=== PATIENT | male | born 1950 | race Caucasian/White ===

== ENCOUNTER 2016-10-07 12:30 | Outpatient (CLI) | payer MEDICARE ==
[~2016-10-07] VITALS: Ht 170.2 cm; Wt 86.2 kg
[~2016-10-07 12:30] MED LIST: ASPI-999 PO; ATOR10TA PO; ATOR40TA PO; TRAM-42 PO
== END 2016-10-07 12:43 ==
LOC: PREOP 12:30
PROVIDERS: ATTEND Surgery
DX: Z01.818 Encounter for other preprocedural examination (principal); Z12.11 Encounter for screening for malignant neoplasm of colon

== ENCOUNTER 2016-10-10 09:15 | Day surgery (SDC) | payer MEDICARE ==
[~2016-10-10] VITALS: Ht 170.2 cm; Wt 86.2 kg
[2016-10-10] MEDS ORDERED: NALOXONE 0.4 MG/ML 1 ML (NARCAN) VIAL IVP PRN (09:30)
[2016-10-10] MEDS ORDERED: NS IV 500 ML 500 ML IV ONE (09:30)
[2016-10-10] MEDS ORDERED: FLUMAZENIL (ROMAZICON) 0.1 MG/ML 5 ML VIAL INJ PRN (09:30)
--- NOTE | 2016-10-10 09:33 | Conscious Sedation/ASA ---
Conscious Sedation Pre-Proced ASA Class: 2 Airway Mallampati Classification: (venetie appropriate class) I. II. III, IV Lungs Heart ASA score ASA 1: a normal healthy patient ASA 2: a patient with a mild systemic disease (mid diabetes, controlled hypertension, obesity ASA 3: a patient with a severe systemic disease that limits activity (angina , COPD, prior Myocardial infarction) ASA 4: a patient with an incapacitating disease that is a constant threat to life (CHF, renal failure) ASA 5: a moribund patient not expected to survive 24 hrs. (ruptured aneurysm) ASA 6: a declared brain patient whose organs are being harvested. For emergent operations, add the letter E after the classification Grade 2 Sedation Plan: Discussed options with patient/fam Note The patient is an appropriate candidate to undergo the planned procedure, sedation, and anesthesia. The patient immediately re-assessed prior to indication. NINA ARENAS MD Oct 10, 2016 9:33 am
[2016-10-10 09:45] VITALS: BP 124/81
[2016-10-10] MEDS ORDERED: METF500T4 PO (09:47)
[2016-10-10] MEDS ORDERED: fentaNYL INJECTION 100 MCG/2 ML AMP ONE ×2 (10:05)
[2016-10-10] MEDS ORDERED: MIDAZOLAM 2 MG/2 ML (VERSED) VIAL ONE ×3 (10:05)
[2016-10-10] MEDS: fentaNYL INJECTION 100 MCG/2 ML AMP IVP PRN ×2 (10:15→10:24)
[2016-10-10] MEDS: MIDAZOLAM 2 MG/2 ML (VERSED) VIAL IVP PRN ×2 (10:18→10:26)
--- NOTE | 2016-10-10 10:47 | Endoscopy Procedure Report ---
Endoscopy Report Date: Oct 10, 2016 Preoperative Diagnosis: screening. Personal history of polyps Study Performed: Colonoscopy Procedure Instrument: Colonoscope Endo Procedure/Findings Findings 1.: Polyp, Diverticulosis Copy Copies To 1: JAKE ARMIJO XAVIER M MD Oct 10, 2016 10:47 am
--- NOTE | 2016-10-10 10:48 | Discharge Inst-Simple/Standard ---
Discharge Inst-Standard Discharge Medications New, Converted or Re-Newed RX: Other Patient Instructions/Follow Up Plan of Care/Instructions/FU: repeat colonoscopy in 2 years Activity as Tolerated: Yes Discharge Diet: ADA Diet NINA ARENAS MD Oct 10, 2016 10:48 am
[2016-10-10 10:50] VITALS: BP 94/51
[2016-10-10 11:20] VITALS: BP 112/72
[2016-10-10 11:30] VITALS: BP 112/72
--- NOTE | 2016-10-10 12:40 | PROCEDURE REPORT ---
PROCEDURE PHYSICIAN: NINA ARENAS DATE OF PROCEDURE: 10/10/2016 PROCEDURE: 1. Screening colonoscopy. 2. Snare polypectomy. SURGEON: Dr. Arenas. INDICATION FOR THE PROCEDURE: This gentleman, with a previous history of polyps, came in for screening colonoscopy. Informed consent was obtained after reviewing the procedure in detail. DESCRIPTION OF THE PROCEDURE: He was placed in left lateral decubitus position and his vital signs were monitored. Conscious sedation was achieved using Versed and fentanyl. Digital rectal examination was unremarkable. The colonoscope was then introduced into the rectum and advanced all the way up to the cecum. The scope was then withdrawn slowly and the mucosa examined in a systematic fashion. FINDINGS: 1. Sigmoid diverticulosis. 2. A 4 mm sessile polyp of the proximal ascending colon, very close to the cecum. It was snared and retrieved. He tolerated the procedure well and was taken back to the nursing area in a stable condition. IMPRESSION: 1. Personal history of polyps. 2. Right colon polyp excised. 3. Recommend repeating in 2 years. Job ID: [id number] Dictated Date: 10/10/2016 10:46:00 Instrumental Musician Date: 10/10/2016 12:36:10 / meagan MARLEY
== END 2016-10-10 11:30 | disposition home or self-care (01) ==
LOC: ENDO 09:15
PROVIDERS: ATTEND Surgery
DX: Z12.11 Encounter for screening for malignant neoplasm of colon (principal); K63.5 Polyp of colon; K57.90 Diverticulosis of intestine, part unspecified, without perforation or abscess without bleeding
CPT/HCPCS: 88305

== ENCOUNTER 2017-11-07 05:36 | Outpatient (CLI) | payer MEDICARE ==
[~2017-11-07] VITALS: Ht 170.2 cm; Wt 86.2 kg
[~2017-11-07 05:36] MED LIST changes: +METF500T5 PO
[2017-11-07] MEDS ORDERED: CART1TAB5 PO (08:52)
[2017-11-08] MEDS ORDERED: ACHD5005 PO (14:51)
== END 2017-11-07 10:00 ==
LOC: PREOP 05:36
PROVIDERS: ATTEND Surgery
DX: Z01.818 Encounter for other preprocedural examination (principal); L98.9 Disorder of the skin and subcutaneous tissue, unspecified

== ENCOUNTER 2017-11-08 09:48 | Day surgery (SDC) | payer MEDICARE ==
[~2017-11-08] VITALS: Ht 170.2 cm; Wt 86.2 kg
[~2017-11-08 09:48] MED LIST changes: +CART1TAB5 PO
--- OUTSIDE RECORDS SUMMARY | 2017-11-08 09:52 | XMS REPORT | Continuity of Care Document ---
Author Author [facility] Organization [facility] Address Unknown Phone Unavailable Allergies Active Description Code Type Severity Reaction Onset Reported/Identified Relationship to Patient Clinical Status Yes No Known Drug Allergies [id number] Drug Allergy Unknown N/A 10/07/2016 Medications There is no data. Problems Date Dx Coded Attending Type Code Diagnosis Diagnosed By 11/04/2014 JAKE ARMIJO DO Ot 427.9 11/23/2014 JAKE ARMIJO DO Ot 427.9 12/12/2014 JAKE ARMIJO DO Ot 427.9 12/12/2014 JAKE ARMIJO DO Ot 427.9 04/23/2015 JAKE ARMIJO DO Ot 427.9 04/27/2015 DEEPA HOPE, NINA Zhao Ot Z01.818 04/29/2015 NINA ARENAS MD Ot C44.329 04/29/2015 NINA ARENAS MD Ot Z11.2 10/07/2016 JAKE ARMIJO DO Ot 427.9 CARDIAC DYSRHYTHMIA NOS 10/07/2016 NINA ARENAS MD Ot Z01.818 ENCOUNTER FOR OTHER PREPROCEDURAL EXAMIN 10/07/2016 NINA ARENAS MD Ot Z12.11 ENCOUNTER FOR SCREENING FOR MALIGNANT NE 10/10/2016 NINA ARENAS MD Ot K57.90 DVRTCLOS OF INTEST, PART UNSP, W/O PERF 10/10/2016 NINA ARENAS MD Ot K63.5 POLYP OF COLON 10/10/2016 NINA ARENAS MD Ot Z12.11 ENCOUNTER FOR SCREENING FOR MALIGNANT NE 10/12/2016 NINA ARENAS MD Ot K57.90 DVRTCLOS OF INTEST, PART UNSP, W/O PERF 10/12/2016 NINA ARENAS MD Ot K63.5 POLYP OF COLON 10/12/2016 NINA ARENAS MD Ot Z12.11 ENCOUNTER FOR SCREENING FOR MALIGNANT NE 10/13/2016 NINA ARENAS MD Ot Z01.818 ENCOUNTER FOR OTHER PREPROCEDURAL EXAMIN 10/13/2016 NINA ARENAS MD Ot Z12.11 ENCOUNTER FOR SCREENING FOR MALIGNANT NE Procedures There is no data. Results There is no data. Encounters ACCT No. Visit Date/Time Discharge Status Pt. Type Provider Facility Loc./Unit Complaint [id number] 10/10/2016 09:15:00 10/10/2016 11:30:00 DIS Outpatient NINA ARENAS MD [facility] ENDO SCREENING [id number] 10/07/2016 12:30:00 10/07/2016 12:43:00 DIS Outpatient NINA ARENAS MD [facility] PREOP SCREENING [id number] 04/29/2015 07:47:00 04/29/2015 13:29:00 DIS Outpatient NINA ARENAS MD [facility] [id number] 04/23/2015 08:41:00 04/23/2015 23:59:59 CLS Outpatient NINA ARENAS MD [facility] PREOP [id number] 11/24/2014 13:30:00 11/24/2014 23:59:59 CLS Preadmit JAKE ARMIJO DO [facility] CARD IRREGULAR HEARTBEAT [id number] 08/25/2014 13:37:00 11/23/2014 00:01:00 DIS Outpatient JAKE ARMIJO DO [facility] CARD [id number] 11/08/2017 12:30:00 PEN Preadmit NINA ARENAS MD [facility] SKIN LESION
[2017-11-08] MEDS ORDERED: LACTATED RINGERS 1,000 ML IV PRN (10:25)
[2017-11-08] MEDS ORDERED: ceFAZolin 2 GM IV Premixed 50 ML IV ONE (10:30)
[2017-11-08 10:33] VITALS: BP 115/81
--- NOTE | 2017-11-08 10:43 | Progress Note-Pre Operative ---
Pre-Operative Progress Note H&P Reviewed The H&P was reviewed, patient examined and no changes noted. Date Seen by Provider: November 02, 2017 Time Seen by Provider: 15:50 Date H&P Reviewed: November 08, 2017 Time H&P Reviewed: 10:43 Pre-Operative Diagnosis: Skin lesion of right cheek NINA ARENAS MD November 08, 2017 10:43 am
[2017-11-08] MEDS ORDERED: DEXAMETHASONE 10 MG/ML (DECADRON) 1 ML VIAL ONE (12:14)
[2017-11-08] MEDS ORDERED: LIDOCAINE PF 2% 5 ML (XYLOCAINE) VIAL ONE ×2 (12:14→12:16)
[2017-11-08] MEDS ORDERED: proPOfol 200 MG/20 ML (DIPRIVAN) VIAL IV ONE ×3 (12:14→13:08)
[2017-11-08] MEDS ORDERED: ONDANSETRON 4 MG/2 ML (SDV) Z0FRAN ONE (12:14)
[2017-11-08] MEDS ORDERED: SEVOFLURANE (ULTANE) 15 ML INHAL SOLN ONE (12:14)
[2017-11-08] MEDS ORDERED: fentaNYL INJECTION 100 MCG/2 ML AMP ONE (12:15)
[2017-11-08] MEDS ORDERED: MIDAZOLAM 2 MG/2 ML (VERSED) VIAL ONE (12:15)
[2017-11-08] MEDS ORDERED: PROPOFOL INJECTION 50 ML IV ONE (12:16)
[2017-11-08] MEDS ORDERED: BUP/EPI 0.5% 1:200,000 (SENSORCAINE) 30 ML VIAL ONE (12:18)
[2017-11-08] MEDS ORDERED: ONDANSETRON 4 MG/2 ML (SDV) Z0FRAN IVP PRN (13:45)
[2017-11-08 14:25] VITALS: BP 101/65
--- NOTE | 2017-11-08 14:37 | Anesthesia-General Post-Op ---
General Patient Condition Mental Status/LOC: Same as Preop Cardiovascular: Satisfactory Nausea/Vomiting: Absent Respiratory: Satisfactory Pain: Controlled Complications: Absent Post Op Complications Complications None Follow Up Care/Instructions Patient Instructions None needed. Anesthesia/Patient Condition Patient Condition Patient is doing well, no complaints, stable vital signs, no apparent adverse anesthesia problems. No complications reported per nursing. MYRANDA TOLEDO CRNA November 08, 2017 14:36
[2017-11-08] MEDS ORDERED: ACHD5005 PO (14:51)
--- NOTE | 2017-11-08 14:52 | Discharge Inst-Simple/Standard ---
Discharge Inst-Standard Discharge Medications New, Converted or Re-Newed RX: RX on Chart Patient Instructions/Follow Up Plan of Care/Instructions/FU: dRESSING OFF IN 48 HOURS. f/u WITH MY NURSE IN 2 WEEKS FOR SUTURE REMOVAL Activity as Tolerated: Yes Discharge Diet: No Restrictions NINA ARENAS MD November 08, 2017 2:52 pm
[2017-11-08 14:55] VITALS: BP 114/76
[2017-11-08 15:25] VITALS: BP 111/72
[2017-11-08 15:27] VITALS: BP 111/72
--- NOTE | 2017-11-08 15:56 | Operative Report ---
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 He was offered excision with frozen section to confirm the diagnosis and ensure negative margins, should carcinoma be found. Informed consent was obtained after reviewing the operative details and complications of hematoma, wound infection and the potential for additional surgery. Description of the procedure: He was placed supine on the operative table and general anesthesia induced. A gram of Ancef was administered intravenously as prophylaxis against wound infection. His face was prepared and draped in the usual sterile manner. Pre-emptive analgesia was established using 0.5 percent Marcaine with epinephrine. An elliptical incision 6 cm long by 3 and I have centimeters in width was made and the lesion excised down to the subcutaneous tissue. It was oriented with silk sutures and sent for histological examination by frozen section. The pathologist reported squamous cell carcinoma with negative margins. Hemostasis was achieved using cautery and the incision closed using 6-0 nylon sutures. He tolerated the procedure well, was extubated in the operating room and taken to the recovery room in a stable condition. Findings of the Procedure See op report Allergies and Home Medications Allergies Coded Allergies: No Known Drug Allergies (Unverified , 10/07/16) Home Medications Aspirin 81 Mg Tab.chew, 81 MG PO DAILY, (Reported) Atorvastatin Calcium 10 Mg Tablet, 5 MG PO DAILY, (Reported) take 1/2 of 10mg tab Cartilage/Collagen/Bor/Hyalur 1 Each Tablet, 1 EACH PO DAILY, (Reported) Hydrocodone Bit/Acetaminophen 1 Tab Tab, 1-2 TAB PO 4-6HR PRN for PAIN Prescribed by: NINA ARENAS on 11/08/17 [id number] Metformin HCl 500 Mg Tablet, 500 MG PO DAILY, (Reported) Patient Home Medication List Home Medication List Reviewed: Yes NINA ARENAS MD November 08, 2017 3:56 pm
== END 2017-11-08 15:27 | disposition home or self-care (01) ==
LOC: SDC 09:48
PROVIDERS: ATTEND Surgery
DX: C44.329 Squamous cell carcinoma of skin of other parts of face (principal); Z11.2 Encounter for screening for other bacterial diseases; Z79.84 Long term (current) use of oral hypoglycemic drugs; Z79.82 Long term (current) use of aspirin; Z79.899 Other long term (current) drug therapy
CPT/HCPCS: 82962; 87081; 88305; 88331; 88332

== ENCOUNTER → 2018-01-29 | Outpatient (CLI) | payer MEDICARE ==
[~2018-01-29] MED LIST changes: +ACHD5005 PO
== END ==
LOC: CARD 10:41
PROVIDERS: ATTEND Family Medicine
DX: R00.8 Other abnormalities of heart beat (principal)
CPT/HCPCS: 93005